=== PATIENT | male | born 1960 | race Caucasian/White ===

== ENCOUNTER 2020-08-25 14:00 | Outpatient (CLI) | payer BC ==
--- NOTE | 2020-08-25 14:24 | RAD ---
Left ankle 3 views: 08/25/2020 COMPARISON: None HISTORY: Pain, recent twisting injury FINDINGS: There is prominent soft tissue swelling. The talar dome and the ankle mortise appear intact with no displaced fracture or dislocation. There is vascular calcification posteriorly. There is mild narrowing of the tibiotalar articulation with mild posterior and anterior distal tibial osteophy te formation. There is enthesophyte formation at the origin of the plantar aponeurosis. IMPRESSION: Chronic findings as above. No acute fracture or dislocation.
== END 2020-08-25 14:01 | disposition home or self-care (01) ==
LOC: BICRAD 14:00
PROVIDERS: ATTEND Physician Assistant
DX: M25.572 Pain in left ankle and joints of left foot (principal); M25.472 Effusion, left ankle; M77.52 Other enthesopathy of left foot and ankle

== ENCOUNTER 2020-08-27 12:34 | Outpatient (CLI) | payer BC | END 2020-08-27 12:35 | disposition home or self-care (01) | LOC: DTY/OP 12:34 | PROVIDERS: ATTEND Physician Assistant | DX: E11.9 Type 2 diabetes mellitus without complications (principal) | CPT/HCPCS: 97802 ==

== ENCOUNTER 2021-03-24 14:26 | Outpatient (CLI) | payer BC | END 2021-03-24 14:27 | disposition home or self-care (01) | LOC: BICRAD 14:26 | PROVIDERS: ATTEND Internal Medicine Rheumatology | DX: M25.571 Pain in right ankle and joints of right foot (principal); M25.572 Pain in left ankle and joints of left foot ==